=== PATIENT | male | born 1955 | race Caucasian/White ===

== ENCOUNTER 2017-01-23 07:15 | Inpatient (IN) | payer OTHER ==
[~2017-01-23 07:15] MED LIST: CEFUROXIME 1,500 MG in NS 50 ML IV ONE; DEXAMETHASONE 10 MG/ML VIAL IVP ONE
[2017-01-23] MEDS ORDERED: LIDOCAINE 1% 2 ML INJ ONE (09:20)
[2017-01-23] MEDS ORDERED: GADOBUTROL 10 ML VIAL IVP ONE (09:22)
[2017-01-23] MEDS ORDERED: DEXAMETHASONE 10 MG/ML VIAL ONE ×2 (09:22→14:42)
[2017-01-23] MEDS ORDERED: BACITRACIN 50,000 UNITS/10 ML SYR IRR ONE (10:36)
[2017-01-23] MEDS ORDERED: AVITENE POWDER 1 GM JAR TP ONE (10:36)
[2017-01-23] MEDS ORDERED: BUPIVACAINE/EPI 0.25% 30 ML SDV ONE (10:36)
[2017-01-23] MEDS ORDERED: THROMBIN (BOVINE) 5,000 UNIT VIAL TP ONE ×3 (10:36→16:20)
[2017-01-23] MEDS ORDERED: fentaNYL 100 MCG/2 ML INJ ONE ×4 (14:42→19:20)
[2017-01-23] MEDS ORDERED: MIDAZOLAM 2 MG/2 ML VIAL ONE (14:44)
[2017-01-23] MEDS ORDERED: fentaNYL 100 MCG/2 ML INJ IVP ONE ×2 (14:45→15:00)
[2017-01-23] MEDS ORDERED: DEXAMETHASONE 4 MG/ML VIAL ONE ×2 (14:47)
[2017-01-23] MEDS ORDERED: LIDOCAINE 2% 100 MG/5 ML SYR ONE (14:47)
[2017-01-23] MEDS ORDERED: PROPOFOL/EMULSION 500 MG/50 ML BOTTLE IV ONE ×2 (14:47→16:05)
[2017-01-23] MEDS ORDERED: ROCURONIUM 50 MG/5 ML VIAL ONE (14:47)
[2017-01-23] MEDS ORDERED: REMIFENTANIL HCL 1 MG VIAL ONE (14:47)
[2017-01-23] MEDS ORDERED: levETIRAcetam 750 MG in NS 100 ML IV ONE (16:00)
[2017-01-23] MEDS ORDERED: MANNITOL 20% 100 GM/500 ML BAG IV ONE (16:01)
[2017-01-23] MEDS ORDERED: BISACODYL 10 MG SUPP PR PRN (17:45)
[2017-01-23] MEDS ORDERED: niCARdipine/NACL 200 ML IV PRN (17:45)
[2017-01-23] MEDS ORDERED: LACTULOSE 20 GM/30 ML UDCUP PO PRN (17:45)
[2017-01-23] MEDS ORDERED: MAGNESIUM HYDROXIDE 30 ML UDCUP PO PRN (17:45)
[2017-01-23] MEDS ORDERED: ACETAMINOPHEN 325 MG TAB PO PRN (17:45)
[2017-01-23] MEDS ORDERED: ONDANSETRON 4 MG/2 ML VIAL IVP PRN (17:45)
[2017-01-23] MEDS ORDERED: PROMETHAZINE HCL 25 MG TAB PO PRN (17:45)
[2017-01-23] MEDS ORDERED: *MD ORDERING ONLY-DEXAMETHASONE TAPER IVP/PO SCH (18:00)
[2017-01-23] MEDS ORDERED: LABETALOL HCL 5 MG/ML 20 ML MDV ONE (18:22)
--- NOTE | 2017-01-23 19:01 | POSTOPPROG ---
Post Op Note Date of Operation: 01/23/17 Surgeon: Giovanni Lovelace Labor Employment Associate: Aristides Ruff Anesthesiologist: kaya winter Anesthesia: GET(General Endotracheal) Pre-op Diagnosis: left parietal lesion Post-op Diagnosis: left parietal lesion, probable GBM Procedure: Craniotomy and resection of lesion Inf/Abcess present in the surg proc area at time of surgery?: No Depth: Organ Space EBL: 50-100
--- NOTE | 2017-01-23 19:27 | GOP ---
[f rep st] OPERATIVE REPORT DATE OF OPERATION: 01/23/2017 SURGEON: Giovanni Lovelace MD NEUROSURGEON: Giovanni Lovelace MD CLAIM TRAINEE: RENAE Hernandez ANESTHESIA: General endotracheal. PREOPERATIVE DIAGNOSIS: Left parietoccipital brain mass. POSTOPERATIVE DIAGNOSIS: Left parietoccipital high-grade tumor. PROCEDURE PERFORMED: 1. Left parietoccipital craniotomy for open biopsy/resection of intraparenchymal brain lesion. 2. Dural reconstruction with locally harvested periosteum. 3. Use of computer volumetric stereotactic navigation and intraoperative microscopy. FINDINGS: ESTIMATED BLOOD LOSS: 150 cc. INDICATIONS: The patient is a 61-year-old man who has developed mental status changes over the past few weeks and was found to have a ring-enhancing lesion in the left parietoccipital area consistent with a brain tumor. He presents now for open biopsy/resection. DESCRIPTION OF PROCEDURE: After informed consent was obtained, the patient was taken to the operating room and placed in the lateral position with the head in the [employer] cold header. The left parietoccipital area was prepped and draped in a sterile fashion after verification of the [employer] system and localization of the ideal location and angle for the tumor resection to miss eloquent cortex. Following prepping and draping, a curvilinear horseshoe-style incision was created centered on the midline and curving anteriorly and inferiorly into the parietoccipital area. The skin, galea and periosteum were reflected inferiorly, and a craniotomy flap turned in standard fashion using a [employer] drill system with match stick fluted bur and the footplate system. Multiple peripheral dural tack-ups were placed. Intraoperative ultrasonography in combination with computer volumetric stereotactic navigation was utilized to identify the ideal location for the dural opening and the lesion. The dura was then opened and reflected back on the midline. The tumor was not terribly obvious and ultrasonography was again utilized to identify the best location for the cortical incision; this was then performed and the tumor was then easily identified. There was not a clear plane around the tumor such as that would fine with a metastatic tumor. Instead, it appeared to be consistent with a primary brain tumor. Tissue was sent for frozen section which came back as high-grade tumor consistent with a high-grade glioma, but the pathologist could not rule out metastatic disease. A gross total resection was then performed by first debulking the center and folding the edges in upon itself and trying to find a plane as best I could between the tumor itself and what was thought to be normal brain. Intraoperative computer volumetric stereotactic navigation and real-time ultrasonography was utilized throughout the case. A gross total resection was performed and meticulous hemostasis was achieved with careful bipolar electrocautery along with Surgicel and Gelfoam soaked in thrombin which was then removed. The dura was then closed in a watertight fashion with the help of a pericranial graft that was harvested locally; 5-0 Prolene suture was utilized for this. After closure of the dura, the wound was copiously irrigated with antibiotic irrigation and the bone flap replaced and secured with multiple titanium plates and screws. A drain was placed and the wound was closed in a layered fashion using interrupted Vicryl sutures followed by anna in the skin. COMPLICATIONS: None. DISPOSITION: The patient is currently in the process of being repositioned for extubation. /[id number]/MODL MTDD
[2017-01-23] MEDS: NS W/ 20 KCl/L 1,000 ML IV SCH (20:45)
[2017-01-23] MEDS: OXYCODONE/APAP 5/325 TAB PO PRN (21:34)
[2017-01-23] MEDS: DEXAMETHASONE 4 MG TAB PO SCH (21:34)
[2017-01-23] MEDS: FAMOTIDINE 20 MG TAB PO SCH (21:36)
[2017-01-23] MEDS: SENNOSIDES/DOCUSATE SODIUM TAB PO SCH (21:37)
[2017-01-23] MEDS: POLYETHYLENE GLYCOL 3350 17 GM PKT PO SCH (21:38)
[2017-01-23] MEDS ORDERED: NICOTINE 21 MG/24 HR PATCH TD ONE (22:15)
[2017-01-24] MEDS: HYDROCODONE/APAP 10/325 TAB PO PRN ×2 (02:59→13:28)
[2017-01-24] MEDS: DEXAMETHASONE 4 MG TAB PO SCH ×4 (03:00→21:06)
[2017-01-24 05:19] LABS: % IMMATURE GRANULYOCYTES 0.8 % (0.0-1.1); ABSOLUTE IMMATURE GRANULOCYTES 0.15 10^3/uL (0.00-0.10); ADD DIFF? NO; ADD MORPH? NO; ADD SCAN? NO; ATYPICAL LYMPHOCYTE FLAG 0 (0-99); FRAGMENT RBC FLAG 0 (0-99); HEMATOCRIT 38.6 % (40.0-51.0); HEMOGLOBIN 13.2 g/dL (13.7-17.5); LEFT SHIFT FLG 0 (0-99); LIPEMIA HEMOLYSIS FLAG 90 (0-99); MEAN CELL HEMOGLOBIN 30.1 pg (27.9-34.1); MEAN CELL HEMOGLOBIN CONCENTR. 34.2 g/dL (32.4-36.7); MEAN CELL VOLUME 87.9 fL (81.5-99.8); MEAN PLATELET VOLUME 10.4 fL (8.7-11.7); PLATELET CLUMPS FLAG 0 (0-99); PLATELET COUNT 212 10^3/uL (150-400); RED BLOOD CELL COUNT 4.39 10^6/uL (4.40-6.38); RED CELL DISTRIBUTION WIDTH 12.5 % (11.5-15.2)
[2017-01-24 05:41] LABS: ANION GAP 9 mEq/L (8-16); CALCIUM 9.3 mg/dL (8.5-10.4); CARBON DIOXIDE 24 mEq/l (22-31); CHLORIDE 103 mEq/L (97-110); CREATININE 1.1 mg/dL (0.7-1.3); GLOMERULAR FILTRATION RATE > 60; GLUCOSE 142 mg/dL (70-100); SODIUM 136 mEq/L (134-144)
[2017-01-24] MEDS: OXYCODONE/APAP 5/325 TAB PO PRN ×4 (06:09→21:04)
--- NOTE | 2017-01-24 08:04 | SOAPPROG ---
SOAP Progress Note Assessment/Plan: Assessment: 61 yo POD #1 sp left parietal crani for resection of tumor Doing well overall, has some right leg decreased sensation, no motor strength issues Drain functional Plan: PT/OT/ST MRI brain w/wo today Ok to transfer to floor Discussed with Dr. Ceja 01/24/17 08:00 01/24/17 08:05 Subjective: out of bed, in chair. Feels like his right leg is "" from a sensation standpoint no MAC, no other neuro issues, Objective: Vital Signs Temp Pulse Resp BP Pulse Ox 37.0 C 71 17 119/62 92 01/24/17 00:00 01/24/17 06:00 01/24/17 06:00 01/24/17 06:00 01/24/17 06:00 Laboratory Results 01/24/17 05:00 01/24/17 05:00 01/23/17 01/24/17 01/25/17 05:59 05:59 05:59 Intake Total 2750 Output Total 1695 Balance 1055 Neuro: A+ox4 equal strength in bilateral upper/lower extremities subjective decreased sensation in right leg CORBY: 70 ml ICD10 Worksheet Patient Problems: Problems Problem Status Onset Brain mass Acute
[2017-01-24] MEDS: NS W/ 20 KCl/L 1,000 ML IV SCH (09:28)
[2017-01-24] MEDS: FAMOTIDINE 20 MG TAB PO SCH ×2 (10:23→21:05)
[2017-01-24] MEDS: SENNOSIDES/DOCUSATE SODIUM TAB PO SCH ×2 (10:25→21:05)
[2017-01-24] MEDS: POLYETHYLENE GLYCOL 3350 17 GM PKT PO SCH ×3 (10:25→21:16)
[2017-01-24] MEDS: levETIRAcetam 500 MG TAB PO SCH (10:25)
[2017-01-24] MEDS: NICOTINE 21 MG/24 HR PATCH TD SCH (11:28)
[2017-01-24] MEDS ORDERED: GADOBUTROL 10 ML VIAL IVP ONE (15:33)
[2017-01-25] MEDS: DEXAMETHASONE 4 MG TAB PO SCH ×3 (03:18→14:49)
[2017-01-25] MEDS: OXYCODONE/APAP 5/325 TAB PO PRN ×2 (06:05→09:10)
[2017-01-25 08:09] VITALS: TEMP 98.3
[2017-01-25] MEDS: NICOTINE 21 MG/24 HR PATCH TD SCH (08:51)
[2017-01-25] MEDS: levETIRAcetam 500 MG TAB PO SCH (08:54)
[2017-01-25] MEDS: FAMOTIDINE 20 MG TAB PO SCH (08:54)
[2017-01-25] MEDS: POLYETHYLENE GLYCOL 3350 17 GM PKT PO SCH (09:10)
[2017-01-25] MEDS: SENNOSIDES/DOCUSATE SODIUM TAB PO SCH (09:10)
--- NOTE | 2017-01-25 09:33 | NEUSURGPN ---
Date of Surgery: 01/23/17 Post Op Day: 2 Assessment/Plan: Assessment: 61 yo POD #2 s/p left parietal crani for resection of tumor Plan: -doing well overall, has some right leg decreased sensation, no motor strength issues -incision CDI -anna in place -PT/OT/ST -MRI brain w/wo shows good resection on post op imaging -Pt doing well and ok for dc home today -adjusted pain medications -call with any questions or concerns -take medications as directed -discussed with Dr. Ceja Subjective: No new complaints or concerns. No f/c/n/v/d. No neck/chest/abd or gu complaints. Objective: AAO x 3, PERRLA/EOMI no droop CN 2-12 grossly intact +lt touch 5/5 BUE/BLE = CDI Neuro Check Frequency: per routine Urinary Catheter in Place: No Catheter Insertion Date: 01/23/17 - Physician Discussed Patient with DrDebbie: [facility] Neurosurgery Physical Exam - Vitals, I&O, Labs I and O 01/24/17 01/25/17 01/26/17 05:59 05:59 05:59 Intake Total 2750 600 Output Total 1695 Balance 1055 600 Intake: Oral (ml) 500 600 IV Intake (ml) 1550 IV Infused (ml) 700 NS W/ 20 KCl/L 1,000 ml @ 700 100 mls/hr IV CONT INDIRA Rx#:[id number] Output: Urine (ml) 1600 Catheter 1600 Estimated Blood Loss (ml) 25 Wound Drainage (ml) 70 Left Head Chapin Cortes 70 Other: Number of Voids Toilet 2 Vital Signs Temp Pulse Resp BP Pulse Ox 36.8 C 74 14 113/68 92 01/25/17 08:00 01/25/17 08:00 01/25/17 08:00 01/25/17 08:00 01/25/17 08:00 Laboratory Results 01/24/17 05:00 01/24/17 05:00 ICD10 Worksheet Patient Problems: Problems Problem Status Onset Brain mass Acute - ICD10 Problem Qualifiers (1) Brain mass
[2017-01-25] MEDS ORDERED: oxyCODONE IR 5 MG TAB PO PRN (09:36)
--- NOTE | 2017-01-25 09:58 | PDIAF ---
- Diagnosis Diagnosis: s/p GBM removal Code Status: Full Code - Medication Management Discharge Medications: Medications to Continue on Transfer Cholecalciferol Vit D3 [Vitamin D3 (*)] 4,000 units PO DAILY 01/24/17 [Last Taken 01/23/17] Levothyroxine [Synthroid 137 mcg (*)] 137 mcg PO DAILY06 01/24/17 [Last Taken ] PARoxetine HCL [Paxil 20mg (*)] 20 mg PO DAILY 01/24/17 [Last Taken 01/23/17] Simvastatin [Zocor] 20 mg PO DAILY 01/24/17 [Last Taken 01/23/17] Tamsulosin HCl [Flomax 0.4 MG (*)] 0.4 mg PO DAILY 01/24/17 [Last Taken 01/23/17 ] Acetaminophen [Tylenol 325mg (*)] 650 mg PO Q4HRS PRN #0 tab 01/25/17 [Last Taken Unknown] Dexamethasone [Decadron 4 MG (*)] 6 mg PO Q6H #0 tab 01/25/17 [Last Taken Unknown] Nicotine [Nicoderm Cq 21 mg (*)] 21 mg TD DAILY #0 patch 01/25/17 [Last Taken Unknown] Sennosides/Docusate Sodium [Senokot-S] 1 - 2 tab PO BID #30 tab 01/25/17 [Last Taken Unknown] levETIRAcetam [Keppra 500 mg (*)] 750 mg PO DAILY #0 tab 01/25/17 [Last Taken Unknown] oxyCODONE IR [Oxycodone Ir (*)] 10 mg PO Q4HRS PRN #60 tab 01/25/17 [Last Taken Unknown] Skilled Nursing Antibiotics: none Discharge Medications: Refer to the Discharge Home Medication list for PRN reason. - Orders Services needed: Home Care, Registered Nurse, Physical Therapy, Occupational Therapy Home Care Face to Face: I certify that this patient was under my care and that I had the required [id number] encounter meeting the encounter requirements on the discharge day. My findings support the fact that the patient is homebound as defined in CMS Chapter 7 Medicare Benefits Manual 30.1.1, The condition of the patient is such that there exists a normal inability to leave home and consequently, leaving home would require a considerable and taxing effort. Oxygen: to keep O2 sat greater than 90% Diet Recommendation: no restrictions on diet Diet Texture: Regular Texture Diet Tube feeding: none Tabares: Not applicable Wound Care Instructions: follow up in 2 weeks for a post op check and removal of staple - Follow Up Care Current Providers and Referrals: ZAKIA SPRINGER [Primary Care Provider] - Giovanni Lovelace MD [Medical Doctor] - (follow up in 2-3 weeks)
[2017-01-25 13:12] VITALS: BP 120/76; PULSE 71; RESP 18; O2SAT 94
[2017-01-25] MEDS: HYDROCODONE/APAP 10/325 TAB PO PRN (14:48)
[2017-01-25] MEDS ORDERED: DEXAMETHASONE 4 MG TAB PO SCH (21:00)
[2017-01-26] MEDS ORDERED: ENOXAPARIN 40 MG/0.4 ML SYR SC SCH (09:00)
[2017-01-26] MEDS ORDERED: DEXAMETHASONE 2 MG TAB PO SCH (21:00)
[2017-01-27] MEDS ORDERED: DEXAMETHASONE 2 MG TAB PO SCH (21:00)
[2017-01-29] MEDS ORDERED: DEXAMETHASONE 2 MG TAB PO SCH (03:00)
[2017-01-30] MEDS ORDERED: DEXAMETHASONE 2 MG TAB PO SCH (15:00)
== END 2017-01-25 15:05 | disposition home or self-care (01) | DRG 27 ==
LOC: F3E 08:44 → F2N 19:53 → F3N 01-24 14:25
PROVIDERS: ADMIT Neurological Surgery; ATTEND Neurological Surgery
PROC: 00B00ZX Excision of Brain, Open Approach, Diagnostic (ICD-10-PCS; principal; 2017-01-23 13:00)
DX: C71.8 Malignant neoplasm of overlapping sites of brain (principal)
CPT/HCPCS: 92523-GN; 97116-GP; 97161-GP; 97163-GP; 97167-GO; A9585; C1713; J0690; J0697; J1100; J1953; J2001; J2250; J2704; J3010; J3490